=== PATIENT | male | born 1960 | race Caucasian/White ===

== ENCOUNTER 2020-07-11 11:04 | Emergency (ER) | payer OTHER, SELFPAY ==
[2020-07-11 11:09] VITALS: BP 147/103; PULSE 100; RESP 18; TEMP 37.1; O2SAT 94
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
[2020-07-11 11:20] VITALS: O2SAT 96
[2020-07-11 11:50] LABS: Basophils % 0.3 %; Eosinophils # 0.1 10^3/uL (0.0-0.8); Eosinophils % 1.3 %; Hematocrit 47.1 % (42.0-52.0); Lymphocytes # 1.7 10^3/uL (0.8-4.8); Lymphocytes % 24.1 %; Mean Corpuscular Hemoglobin 29.7 pg (28.0-34.0); Mean Corpuscular Volume 87.5 fL (80-94); Mean Platelet Volume 9.3 fL (7.4-10.4); Monocytes # 0.6 10^3/uL (0.2-0.9); Monocytes % 8.5 %; Neutrophils # 4.59 10^3/uL (1.8-7.7); Neutrophils % 65.4 %; Nucleated Red Blood Cells % 0 %; Platelet Count 226 10^3/cmm (130-400); Red Blood Count 5.38 10^6/uL (4.1-5.3); Red Cell Distribution Width 12.3 % (12.1-15.1)
[2020-07-11 12:02] LABS: Add Urine Microscopic? NO; Charge for UA Resulting for Rev
[2020-07-11 12:08] LABS: Anion Gap 17.4 (5-19); Blood Urea Nitrogen 13 mg/dL (8-23); Calcium 9.7 mg/dL (8.5-10.5); Carbon Dioxide 24 mmol/L (22-29); Chloride 101 mmol/L (98-107); Glomerular Filtration Rate 98.6 mL/min (90-130); Glucose 94 mg/dL (65-115); Osmolality Calculated 286 mOsm/kg (285-295); Potassium 4.4 mmol/L (3.5-5.1); Sodium 138 mmol/L (136-145)
[2020-07-11 12:09] LABS: Bilirubin Urine Neg (Negative); Blood Urine Neg (Negative); Glucose Urine UA Norm (Normal); Ketones Urine Negative (Negative); Leukocyte Esterase Urine Negative (Negative); Nitrate Urine Negative (Negative); Protein Urine Neg (Negative); Sulfosalicylic Acid Urine Negative (Negative); Urine Appearance Clear (CLEAR); Urine Color Yellow (Yellow); Urobilinogen Urine Norm (Negative); pH Urine 5 (5-7)
== END 2020-07-11 12:00 | disposition home or self-care (01) ==
PROVIDERS: Emergency Provider Family Medicine; PCP Emergency Medicine Emergency Medical Services
DX: S13.4XXA Sprain of ligaments of cervical spine, initial encounter (principal); S39.012A Strain of muscle, fascia and tendon of lower back, initial encounter; Z87.891 Personal history of nicotine dependence; V89.2XXA Person injured in unspecified motor-vehicle accident, traffic, initial encounter
CPT/HCPCS: 36415; 72040; 72100; 80048; 81003; 85025; 99283

== ENCOUNTER → 2023-04-27 14:14 | Outpatient (BNVA) | payer OTHER, SELFPAY | PROVIDERS: PCP Emergency Medicine Emergency Medical Services; Visit Provider Dermatology | DX: D48.5 Neoplasm of uncertain behavior of skin (principal); L57.0 Actinic keratosis; L82.1 Other seborrheic keratosis; L57.8 Other skin changes due to chronic exposure to nonionizing radiation; D18.01 Hemangioma of skin and subcutaneous tissue | CPT/HCPCS: 11102; 17000; 99213 ==

== ENCOUNTER → 2023-05-19 08:18 | Outpatient (BNVA) | payer OTHER, SELFPAY | PROVIDERS: PCP Emergency Medicine Emergency Medical Services; Visit Provider Dermatology | DX: L82.1 Other seborrheic keratosis (principal) | CPT/HCPCS: 17000; 17262; 99213 ==

== ENCOUNTER → 2023-11-02 10:08 | Outpatient (BNVA) | payer OTHER, SELFPAY | PROVIDERS: PCP Emergency Medicine Emergency Medical Services; Visit Provider Nurse Practitioner Family | DX: D48.5 Neoplasm of uncertain behavior of skin (principal); L57.0 Actinic keratosis; L82.0 Inflamed seborrheic keratosis; L57.8 Other skin changes due to chronic exposure to nonionizing radiation; Z85.828 Personal history of other malignant neoplasm of skin | CPT/HCPCS: 11102; 17000; 17110; 99213 ==

== ENCOUNTER → 2024-01-18 08:03 | Outpatient (BNVA) | payer OTHER, SELFPAY | PROVIDERS: PCP Emergency Medicine Emergency Medical Services; Visit Provider Nurse Practitioner Family | DX: L57.8 Other skin changes due to chronic exposure to nonionizing radiation (principal); D22.61 Melanocytic nevi of right upper limb, including shoulder; Z08 Encounter for follow-up examination after completed treatment for malignant neoplasm; Z85.828 Personal history of other malignant neoplasm of skin; L91.8 Other hypertrophic disorders of the skin; L53.8 Other specified erythematous conditions; H53.452 Other localized visual field defect, left eye; L57.0 Actinic keratosis | CPT/HCPCS: 17000; 17110; 99213 ==

== ENCOUNTER → 2024-05-02 08:17 | Outpatient (BNVA) | payer OTHER, SELFPAY | PROVIDERS: PCP Emergency Medicine Emergency Medical Services; Visit Provider Nurse Practitioner Family | DX: L57.8 Other skin changes due to chronic exposure to nonionizing radiation (principal); X32.XXXA Exposure to sunlight, initial encounter; L57.0 Actinic keratosis; L81.4 Other melanin hyperpigmentation; L82.1 Other seborrheic keratosis; D18.01 Hemangioma of skin and subcutaneous tissue; Z08 Encounter for follow-up examination after completed treatment for malignant neoplasm; Z85.828 Personal history of other malignant neoplasm of skin; L82.0 Inflamed seborrheic keratosis; L29.89 Other pruritus; R20.8 Other disturbances of skin sensation; L53.8 Other specified erythematous conditions | CPT/HCPCS: 17000; 17110; 99214 ==

== ENCOUNTER → 2024-10-29 08:33 | Outpatient (BNVA) | payer OTHER, SELFPAY | PROVIDERS: PCP Emergency Medicine Emergency Medical Services; Visit Provider Nurse Practitioner Family | DX: L57.8 Other skin changes due to chronic exposure to nonionizing radiation (principal); X32.XXXA Exposure to sunlight, initial encounter; L57.0 Actinic keratosis; L81.4 Other melanin hyperpigmentation; D18.01 Hemangioma of skin and subcutaneous tissue; Z08 Encounter for follow-up examination after completed treatment for malignant neoplasm; Z85.828 Personal history of other malignant neoplasm of skin; D48.5 Neoplasm of uncertain behavior of skin | CPT/HCPCS: 11102; 17000; 99214 ==

== ENCOUNTER 2024-12-03 15:16 | Emergency (ER) | payer OTHER, SELFPAY ==
[2024-12-03 15:31] VITALS: BP 148/94; PULSE 82; RESP 16; TEMP 36.7; O2SAT 97; BMI 3807.9
--- OUTSIDE RECORDS SUMMARY | 2024-12-03 15:36 | XMS_ITS | Encounter Summary ---
Author Organization [facility] Address [address] [place] [address] Care Team Providers Care Hunter Trapper Name Role Phone Robert De La Torre MD Primary Care Provider Unavailab le Encounter Details Date Type Department Care Team (Latest Contact Info) Description 08/10/2003 Outpatient Historical [facility] Operating Room [address] [place] [id number] Lobo Davis MD NO ADDRESS ON FILE RETINAL DETACHMENT NOS (Primary Dx) Social History Tobacco Use Types Packs/Day Years Used Date Smoking Tobacco: Never Assessed Sex and Gender Information Value Date Recorded Sex Assigned at Not on file 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
--- OUTSIDE RECORDS SUMMARY | 2024-12-03 15:36 | XMS_ITS | Data Portability ---
Author Organization [place] [facility] Donn Deluna [facility] Address [address] [facility] [address] [place] [address] Assessment No assessment recorded. Plan of Treatment Reminders Order Date Submit Date Provider Last Modified By Organization Details Last Modified Time Details Appointments None recorded. Lab None recorded. Referral None recorded. Procedures None recorded. Surgeries None recorded. Imaging None recorded. Medication Orders prednisone 20 mg tablet 2022 023 [facility], [address], [place], [address], 09:47:03 betamethaso ne acetate and sodium phos 6 mg/mL suspension for injection 2022 023 [email or web address] Not available 12:46:13 Patient TargetsNo targets recorded. Patient InstructionsNo instructions recorded. Reason for Referral None Reported. Medical Equipment None Reported. Allergies No known drug allergies Medications Name Sig Start Date Stop Date Status Note LastModified by Organization Details LastModified Time prednisone 20 mg tablet Take 1 tablet every day by oral route for 5 days. 2022 active Not Available Not Available Not Avai lable betamethasone acetate and sodium phos 6 mg/mL suspension for injection Take 1 mL every day by injection route for 1 day. 2022 active Not Available Not Available Not Avai lable Vitals Date Recorded Body height Body mass index (BMI) Body weight Body temperature Heart rate Oxygen saturation Oxygen saturation in Arterial blood by Pulse oximetry Systolic And Diastolic Provider Name and Address Organization Details Last Updated DateTime 3 180.34 cm 29 kg/m2 87809.2 1 g 98.5 [degF] 92 /min 99 % 99 % 132/80 mm[Hg] [facility] [employer], L.LGurvinderC. 09:34:21 Social History None recorded. Functional Status None recorded. Mental Status None recorded. Family History Nothing Reported. Medical History No medical history recorded. Immunizations Vaccine Type Date Status Note Provider Nam e and Address Organization Details Recorded Time Influenza, split virus, trivalent, preservative 4 completed Not Available [facility] 09/04/2022 02:29:36 Past Encounters Encounter ID Performer Location Encounter Start Date Encounter Closed Date Diagnosis/Indication Diagnosis SNOMED-CT Code Diagnosis ICD10 Code Diagnosis IMO Codes Diagnosis Note [id number] BARRY HARRINGTON PA-C [facility] ([facility] [place] [facility]) [address] [place] [phone] 11/08/2022 09:17:51 11/08/2022 10:12:20 Allergic reaction caused by insect bite and/or insect sting [id number] T78.40XA at this point seems more reactionar y to the venom then infected. Take Zyrtec 10mg po bid until swelling resolves as well. Health Concerns Section Related Observation LastModified by Organization Detai ls LastModified Time None Recorded Concern Status LastModified by Organization Details LastModified Time None Recorded Advance Directives Directive None Recorded Payers Insurance Date Sequence Insurance Name Policy Number Policy Heart Covered Member ID Heart Member ID Guarantor Name 11/17/2022 1 [facility] [id number] Humberto Rivera [id number] Humberto Rivera Notes Date Note Type Note Provider Name and Address Organization Details Recorded Time 11/08/2022 text/html Skin LesionRepor yesika by PatientHPIFor location, patient reportswrist. For quality, patient reportspainful,tende r, andsore. For severity, patient reportsmoderate. For duration, patient reportsstarted: ___and0 days. For timing, patient reportsabrupt. For context, patient reportstrauma. For associated symptoms, patient reportsno fever,no nausea, andno vomiting. For prior treatments, patient reportsnone.ROS as noted in the HPI felt like he got stung in the middle of the night. woke with a achy swelling wrist. BARRY HARRINGTON PA-C [address] [place] [address], [phone], [facility] 11/08/2022 09:49:38
--- OUTSIDE RECORDS SUMMARY | 2024-12-03 15:36 | XMS_ITS | Clinical Summary ---
Author Organization [facility] Address [address] [place] [address] Care Team Providers Care Food And Nutrition Services Assistant Name Role Phone Robert De La Torre MD Primary Care Provider Unavailab le Allergies No known active allergies Medications LISINOPRIL ORAL Take by mouth. Active PRAVASTATIN SODIUM (PRAVASTATIN ORAL) Take by mouth. 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 Gender Identity Not on file Sexual Orientation Not on file Occupation Industry Job Start Date Job End Date Not on file Not on file Not on file Not on file Last Filed Vital Signs Vital Sign Reading Time Taken Comments Blood Pressure 124/81 10/31/2014 2:19 PM CDT Pulse - - Temperature - - Respiratory Rate - - Oxygen Saturation - - Inhaled Oxygen Concentration - - Weight 99.8 kg (220 lb) 10/31/2014 2:19 PM CDT Height 182.9 cm (6') 10/31/2014 2:19 PM CDT Body Mass Index 29.84 10/31/2014 2:19 PM CDT Plan of Treatment Health Maintenance Due Date Last Done Comments DTAP/TDAP/TD VACCINES (1 - Tdap) 09/14/1978 COLORECTAL SCREENING 09/14/2004 Colorectal Cancer Screening 09/14/2004 FIT-DNA Q 3 years 09/14/2004 FIT/FOBT Q 1 year 09/14/2004 Flex Sig/CT Colonography Q 5 years 09/14/2004 PNEUMOCOCCAL VACCINE 50+ YEARS (1 of 1 - PCV) 09/15/19 10 ZOSTER VACCINE (1 of 2) 09/14/2009 INFLUENZA VACCINE (#1) 2024 RSV VACCINE (60+ or ) (1 - 1-dose 75+ series) 09/14/2034 Care Teams Food And Nutrition Services Assistant Relationship Specialty Start Date End Date Robert De La Torre MD PCP - General Moving Picture Producer 04/06/10
--- OUTSIDE RECORDS SUMMARY | 2024-12-03 15:36 | XMS_ITS | Clinical Summary ---
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
--- NOTE | 2024-12-03 15:38 | ED_ITS ---
HPI - Extremity Problem General: Chief complaint: Extremity Problem,Nontraumatic Stated complaint: lower rt leg pain, [facility] Time Seen by Provider: 12/03/24 15:37 Source: patient Mode of arrival: ambulatory Limitations: no limitations History of Present Illness: Patient is a nice 64-year-old male presents to ED today with a complaint of right lower leg pain that has been present over the past several days. No known injury or trauma. He has not noticed any obvious swelling to the extremity. He has not noted any color or temperature changes. [facility] showing arthritis. He was reportedly sent to the emergency department for rule out DVT. Patient states he is having pain mainly when bending the knee. Sometimes he will get a sharp nerve like pain extending down the medial aspect of his lower leg. He is not having any back pain. He is ambulatory here without difficulty or assistance. MD Complaint: extremity pain Onset (ago): day(s) Pain Consistency: intermittent Location: right and lower extremity Radiation: none Relieving factors: nothing Exacerbating factors: walking and other (bending, stairs, etc) Associated symptoms: Reports no associated symptoms; Deny fever(s) Related Data Previous Rx's ?Medication ?Instructions ?Recorded triamcinolone acetonide 0.1 % 1 applic topical BID #80 grams 10/14/20 topical ointment Allergies Allergy/AdvReac Type Severity Reaction Status Date / Time No Known Allergies Allergy Verified 10/14/20 09:11 Review of Systems Const: Denies: fever(s) Musc: Reports: extremity pain; Denies: back pain, extremity swelling, joint pain, joint swelling, joint redness, joint warmth, joint stiffness, limited range of motion, muscle cramps, muscle weakness or decrease in muscle mass Neuro: Denies: numbness in extremities, weakness in extremities, sensory changes or difficulty walking PFSH ED PFSH: Medical History Erectile dysfunction Calculus of proximal left ureter Surgical History Hx of detached retina repair Hx of left inguinal hernia repair Family History Brother Diabetes Father , AT AGE 78 LUNG CANCER Cancer Mother , AT AGE 73 Stroke Social History Smoking and tobacco/nicotine status: never used tobacco/nicotine Alcohol intake: unknown Substance/Drug Use: unknown Adopted: No Caregiver/support person: No Lives independently: No Household members: spouse Marital status: Current occupational status: employed Current gender identity: Male Physical Exam Const: COMMON NORMALS: no acute distress, average body habitus, patient oriented x3, no limitations, healthy appearing, alert and well nourished GENERAL APPEARANCE: cooperative Extremity: COMMON NORMALS: normal to inspection, full ROM, capillary refill normal, no joint enlargement, no clubbing, cyanosis or edema, no calf tenderness and no pedal edema GENERAL: Yes normal exam except as noted RIGHT LOWER EXTREMITY: Yes knee joint, Yes lower leg, Yes foot & digits and Yes foot & digits OTHER: R LE with intact DP/PT pulses. Sensation normal. No edema. No calf pain/negative Tatyana's. Normal color/temp. Pain at medial knee with flexion. No obvious Forbes's cyst. Neuro: COMMON NORMALS: patient oriented x3, moves all extremities, no focal motor deficits, no sensory deficits noted and gait normal SENSORIUM/ORIE NTATION: Yes alert Course Vital Signs: Vital signs: Vital Signs Temperature 98.1 F 12/03/24 15:31 Pulse Rate 86 12/03/24 16:43 Respiratory Rate 16 12/03/24 15:31 Blood Pressure 146/86 12/03/24 16:43 Pulse Oximetry 96 12/03/24 16:43 Oxygen Delivery Me thod Room Air 12/03/24 15:31 MDM - Extremity (Nontraumatic) Medical Decision Making US right lower extremity negative for DVT. No Forbes's cyst was appreciated. Patient has recently had knee XR performed through his primary care office. This was not repeated today as it is unlikely to change manager. Reportedly there was osteoarthritis present. Discussed other etiologies such as a nerve entrapment. Patient states he will follow-up with primary care and determine from their best course of action including referral to orthopedics or physical therapy. I do not have any concern at this time for life-threatening etiology. Differential Diagnosis Likely superficial thrombophlebitis and deep vein thrombosis of lower extremity Medical Records I reviewed the patient's medical records. Lab Data Radiology Impressions Venous Duplex 12/03/24 15:52 IMPRESSION: No evidence of deep vein thrombosis. All radiology interpretation(s) finalized by discharge Discharge Plan Discharge Patient Disposition: Home Clinical Impression: Acute pain of right lower extremity Condition: Stable Prescriptions: No Action triamcinolone acetonide 0.1 % ointment 1 applic topical BID Qty: 80 1RF Rx Instructions: to hands no more than 3 wks/mo Discharge Orders: Discharge ED (Routine); Ordered 12/03/24 Ordered By: Cindi Neville Referrals: Margarita Albrecht MD [Primary Care Provider, Family Practice] Patient Instructions: Patient Portal & [facility] Instructions Activity Restrictions/Additional Instructions: As we discussed, ultrasound imaging of your right lower leg was negative for DVT (blood clot). We discussed other etiologies including bony arthritis, other musculoskeletal pains, nerve entrapments, etc. I would like you to follow-up with your primary care provider for further evaluation and further treatment options including referral to orthopedics or physical therapy. Print Language: French Coding Level of Care Code ED Convenience Store Clerk for Tracey Hammond
--- NOTE | 2024-12-03 15:52 | USR_ITS ---
PROCEDURE INFORMATION: Exam: US Duplex Right Lower Extremity Veins, Limited Exam date and time: 12/03/2024 4:07 PM Age: 64 years old Clinical indication: Pain; Leg, lower; Right; Additional info: Pain; R/O dvt also eval for bakers TECHNIQUE: Imaging protocol: Real-time duplex ultrasound of the right extremity with 2-D pratt scale, color Doppler flow and spectral waveform analysis including responses to compression and other maneuvers (when performed) with image documentation. Limited exam was focused on the right lower extremity veins. COMPARISON: No relevant prior studies available. FINDINGS: Right deep veins: Unremarkable. The common femoral, femoral, proximal profunda femoral and popliteal veins are patent without thrombus. Normal Doppler waveforms. Normal compressibility and/or augmentation response. Superficial veins: Greater saphenous vein at the saphenofemoral junction is patent without thrombus. Soft tissues: Unremarkable. US/[place] [id number] IMPRESSION: No evidence of deep vein thrombosis.
[2024-12-03 16:43] VITALS: BP 146/86; PULSE 86; O2SAT 96
== END 2024-12-03 16:44 | disposition home or self-care (01) ==
PROVIDERS: Emergency Provider Physician Assistant; PCP Family Medicine
DX: M79.604 Pain in right leg (principal)
CPT/HCPCS: 93971; 99284

== ENCOUNTER → 2024-12-06 07:45 | Outpatient (BNVA) | payer OTHER, SELFPAY | PROVIDERS: PCP Family Medicine; Visit Provider Dermatology | DX: C44.329 Squamous cell carcinoma of skin of other parts of face (principal) | CPT/HCPCS: 11643; 13132 ==

== ENCOUNTER → 2024-12-14 10:41 | Outpatient (BNVA) | payer OTHER, SELFPAY | PROVIDERS: PCP Family Medicine; Visit Provider Dermatology | DX: D48.5 Neoplasm of uncertain behavior of skin (principal) | CPT/HCPCS: 69100 ==

== ENCOUNTER → 2024-12-24 10:08 | Outpatient (BNVA) | payer OTHER, SELFPAY | PROVIDERS: PCP Family Medicine; Visit Provider Orthopaedic Surgery | DX: M17.11 Unilateral primary osteoarthritis, right knee (principal); Z01.89 Encounter for other specified special examinations | CPT/HCPCS: 20610; 73560; 73565; 99204; J3301; J3490; J9999 ==